=== PATIENT | female | born 1955 | race Hispanic/Latino ===

== ENCOUNTER 2017-07-16 09:15 | Outpatient (CLI) | payer BC ==
--- NOTE | 2017-07-16 09:36 | XRay Report ---
XRAY LEFT KNEE 4 THREE VIEWS: 07/16/17 CLINICAL: Left knee pain. FINDINGS: No fracture or dislocation. Medial joint space narrowing with moderate size medial osteophytes. Slight lateral subluxation of the tibia. Widening of the lateral joint space. Bilateral meniscal chondrocalcinosis and calcified bodies suggestive of loose bodies. Patellofemoral joint osteoarthritis with a superior osteophyte.No joint effusion.Normal soft tissues. IMPRESSION: Osteoarthritis of the medial joint and patellofemoral joint. Possible loose bodies in the joint.
== END 2017-07-16 09:16 | disposition home or self-care (01) ==
LOC: SPVIMAG 09:15
PROVIDERS: ATTEND Orthopaedic Surgery Sports Medicine
DX: M17.12 Unilateral primary osteoarthritis, left knee (principal); M11.262 Other chondrocalcinosis, left knee